=== PATIENT | male | born 1965 ===

== ENCOUNTER 2021-03-29 08:00 | Outpatient (CLI) | payer OTHER | END 2021-03-29 08:30 | disposition home or self-care (01) | LOC: PPH VACUNA 08:00 | PROVIDERS: ATTEND Emergency Medicine Pediatric Emergency Medicine | DX: Z23 Encounter for immunization (principal) ==

== ENCOUNTER 2021-09-13 17:55 | Emergency (ER) | payer OTHER ==
[~2021-09-13] VITALS: Ht 175.3 cm; Wt 127.0 kg
[2021-09-13] MEDS ORDERED: JARDIANCE10 MG PO (18:09)
[2021-09-13] MEDS ORDERED: COZAAR100 MG PO (18:10)
[2021-09-13] MEDS ORDERED: APRESOLINE 10MG10 MG PO (18:10)
[2021-09-13] MEDS ORDERED: LIPITOR20 MG PO (18:10)
[2021-09-13] MEDS ORDERED: PLAVIX75 MG PO (18:11)
[2021-09-13] MEDS ORDERED: AZOR 10-20 MG1 EACH PO (18:11)
[2021-09-13] MEDS ORDERED: TENORMIN50 M1 PO (18:11)
== END 2021-09-14 18:22 ==
LOC: ER 17:55
DX: K95.89 Other complications of other bariatric procedure (principal); K59.00 Constipation, unspecified; E66.9 Obesity, unspecified; I10 Essential (primary) hypertension; G47.33 Obstructive sleep apnea (adult) (pediatric); E11.9 Type 2 diabetes mellitus without complications; Z20.822 Contact with and (suspected) exposure to COVID-19